=== PATIENT | male | born 1945 | race Caucasian/White ===

== ENCOUNTER 2018-09-30 14:41 | Inpatient (IN) | payer MEDICARE ==
[~2018-09-30] VITALS: Ht 177.8 cm; Wt 60.2 kg
[2018-09-30] MEDS ORDERED: ALBUTEROL/IPRATROPIUM 2.5MG/0.5MG, 3 ML ONE ×2 (14:55→15:26)
[2018-09-30] MEDS ORDERED: PLEASE ENTER ALLERGIES MC SCH (15:00)
[2018-09-30] MEDS ORDERED: PLEASE ENTER HEIGHT AND WEIGHT MC SCH (15:00)
[2018-09-30] MEDS: ALBUTEROL/IPRATROPIUM 2.5MG/0.5MG, 3 ML NPPB SCH ×3 (15:05→21:00)
--- NOTE | 2018-09-30 15:29 | NUR ---
PT PRESENTED TO ED WITH SHORTNESS OF BREATH X 3 DAYS. FRIEND STATED HE HAS HAD DECREASED APPETITE OVER THE PAST FEW DAYS. PT A&OX4 AND DROWSY. PT PLACED IN ROOM AND EKG DONE AND PRESENTED TO MD. PT PLACED ON BP, CARDIAC AND CONT. PULSE OXIMETER. ASSESSMENT COMPLETED. RT AT BEDSIDE VENUS STOCKB TREATMENT. 2 SIDE RAILS UP
[2018-09-30] MEDS ORDERED: methylPREDNISolone SOD SUCC 125 MG/2 ML IVPush ONE (15:30)
[2018-09-30] MEDS ORDERED: methylPREDNISolone SOD SUCC 125 MG/2 ML ONE (15:37)
[2018-09-30 15:43] LABS: BASOPHILS # (AUTO) 0.03 x10^3/uL (0-0.1); BASOPHILS % (AUTO) 0 % (0-1); EOSINOPHILS # (AUTO) 0.01 x10^3/uL (0-0.4); EOSINOPHILS % (AUTO) 0 % (1-7); LYMPHOCYTES # (AUTO) 1.04 x10^3/uL (1-3.4); LYMPHOCYTES % (AUTO) 16 % (22-44); MD NO; MEAN CORPUSCULAR HGB CONC 32.4 g/dL (33.2-36.2); MEAN CORPUSCULAR VOLUME 89.5 fL (81-97); MEAN PLATELET VOLUME 9.7 fL (7.4-10.4); MONOCYTES % (AUTO) 12 % (2-9); NEUTROPHILS # (AUTO) 4.65 x10^3/uL (1.8-6.8); NEUTROPHILS % (AUTO) 71 % (42-75); PLATELET COUNT 204 x10^3/uL (130-400); RED BLOOD COUNT 5.45 x10^6/uL (4.38-5.82); RED CELL DISTRIBUTION WIDTH 15.6 % (9.4-14.8)
[2018-09-30] MEDS ORDERED: UMEC1DIS INH (15:43)
[2018-09-30 15:54] LABS: ALBUMIN 3.5 g/dL (3.4-5.0); ANION GAP 5 mmol/L (5-15); CHLORIDE 105 mmol/L (98-107)
[2018-09-30 15:58] LABS: CREATININE 1.06 mg/dL (0.7-1.3); TROPONIN I 0.135 ng/mL (0.000-0.045)
[2018-09-30] MEDS ORDERED: CEFTRIAXONE PMX 1GM/50ML 50 ML IV ONE (16:00)
[2018-09-30] MEDS ORDERED: DOXYCYCLINE 100 MG in DEXTROSE 5% 250 ML IV ONE (16:00)
--- NOTE | 2018-09-30 16:11 | NUR ---
BLOOD CULTURES DRAWN X 2 AND ANTIBIOTICS HUNG PER MD ORDER
[2018-09-30] MEDS ORDERED: CEFTRIAXONE PMX 1GM/50ML 50 ML ONE (16:26)
[2018-09-30] MEDS ORDERED: ENOXAPARIN 60 MG/0.6 ML SQ ONE (16:30)
[2018-09-30] MEDS ORDERED: ASPIRIN 325 MG TABLET PO ONE (16:30)
[2018-09-30] MEDS ORDERED: morphine SULFATE 10 MG/ML, 1ML IVPush PRN (17:30)
[2018-09-30] MEDS ORDERED: ACETAMINOPHEN 325 MG TABLET PO PRN (17:30)
[2018-09-30] MEDS ORDERED: DOCUSATE 100 MG CAPSULE PO PRN (17:30)
[2018-09-30] MEDS ORDERED: ONDANSETRON 2MG/ML, 2ML IVPush PRN (17:30)
[2018-09-30] MEDS ORDERED: BISACODYL 10 MG SUPP PR PRN (17:30)
[2018-09-30] MEDS ORDERED: ONDANSETRON ODT 4 MG PO PRN (17:30)
[2018-09-30] MEDS ORDERED: hydrALAzine 20 MG/ML, 1ML IVPush PRN (17:30)
[2018-09-30] MEDS ORDERED: PROMETHAZINE 25 MG/ML, 1ML IM PRN (17:30)
[2018-09-30] MEDS ORDERED: POLYETHYLENE GLYCOL 17 GM PACKET PO PRN (17:30)
[2018-09-30] MEDS ORDERED: HYDROcodone/APAP 5/325 TABLET PO PRN (17:30)
[2018-09-30 17:39] LABS: FREE T4 (FREE THYROXINE) 1.61 ng/dL (0.76-1.46)
[2018-09-30 17:45] LABS: HEMOGLOBIN A1C 5.4 % (4.2-6.3)
[2018-09-30] MEDS ORDERED: ASPIRIN 325 MG TABLET ONE (17:53)
--- NOTE | 2018-09-30 18:04 | NUR ---
called report and nurse not available.
--- NOTE | 2018-09-30 18:25 | NUR ---
report given to [facility]. pt will be transferred.
[2018-09-30 19:45] VITALS: BP 113/73
[2018-09-30] MEDS: HEPARIN 5,000 UNITS/ML, 1ML SQ SCH (20:11)
[2018-09-30] MEDS: NICOTINE 14MG/24 HR PATCH.TD24 TD SCH (20:11)
[2018-09-30] MEDS: SODIUM CHLORIDE 0.9% 1,000 ML IV SCH (20:11)
[2018-09-30] MEDS: methylPREDNISolone SOD SUCC 125 MG/2 ML IVPush SCH (20:12)
[2018-09-30] MEDS ORDERED: ALBUTEROL/IPRATROPIUM 2.5MG/0.5MG, 3 ML NPPB PRN (20:30)
[2018-10-01 00:33] LABS: BASOPHILS % (AUTO) 0 % (0-1); EOSINOPHILS % (AUTO) 0 % (1-7); LYMPHOCYTES # (AUTO) 0.37 x10^3/uL (1-3.4); LYMPHOCYTES % (AUTO) 9 % (22-44); MD NO; MEAN CORPUSCULAR HEMOGLOBIN 30.1 pg (27.5-34.5); MEAN CORPUSCULAR HGB CONC 33.5 g/dL (33.2-36.2); MEAN CORPUSCULAR VOLUME 89.6 fL (81-97); MEAN PLATELET VOLUME 9.7 fL (7.4-10.4); MONOCYTES # (AUTO) 0.06 x10^3/uL (0.2-0.8); MONOCYTES % (AUTO) 1 % (2-9); NEUTROPHILS # (AUTO) 3.61 x10^3/uL (1.8-6.8); NEUTROPHILS % (AUTO) 89 % (42-75); PLATELET COUNT 168 x10^3/uL (130-400); RED BLOOD COUNT 4.69 x10^6/uL (4.38-5.82); RED CELL DISTRIBUTION WIDTH 15.6 % (9.4-14.8)
[2018-10-01 00:45] LABS: TROPONIN I 0.105 ng/mL (0.000-0.045)
[2018-10-01 00:51] LABS: ALANINE AMINOTRANSFERASE 15 U/L (12-78); ALBUMIN 2.9 g/dL (3.4-5.0); ANION GAP 7 mmol/L (5-15); CALCIUM 8.5 mg/dL (8.5-10.1); CHLORIDE 108 mmol/L (98-107); CHOLESTEROL, TOTAL 118 mg/dL (140-239); CREATININE 0.94 mg/dL (0.7-1.3)
[2018-10-01 00:54] LABS: ALKALINE PHOSPHATASE 73 U/L (45-117); BILIRUBIN,TOTAL 0.1 mg/dL (0.2-1.0); CHOL/HDL RATIO 2.1; HDL CHOL % 48 % (26-37); HDL CHOLESTEROL (DIRECT) 57 mg/dL (40-60); LDL CHOLESTEROL,CALCULATED 52 mg/dL (54-169); LDL/HDL RATIO 0.9 (0.5-3.0); TOTAL PROTEIN 6.1 g/dL (6.4-8.2); TRIGLYCERIDES 47 mg/dL (50-200); VLDL CHOLESTEROL 9 mg/dL (0-25)
[2018-10-01 02:13] VITALS: BP 116/72
[2018-10-01] MEDS: ALBUTEROL/IPRATROPIUM 2.5MG/0.5MG, 3 ML NPPB SCH ×4 (02:44→20:40)
[2018-10-01] MEDS: methylPREDNISolone SOD SUCC 125 MG/2 ML IVPush SCH ×4 (03:56→19:44)
[2018-10-01] MEDS: CEFTRIAXONE PMX 2GM/50ML 50 ML IV SCH (04:13)
[2018-10-01] MEDS: HEPARIN 5,000 UNITS/ML, 1ML SQ SCH ×3 (04:13→19:44)
[2018-10-01] MEDS: SODIUM CHLORIDE 0.9% 1,000 ML IV SCH ×2 (05:00→05:52)
[2018-10-01] MEDS: DOXYCYCLINE 100 MG in DEXTROSE 5% 250 ML IV SCH ×2 (05:51→17:42)
[2018-10-01 07:00] VITALS: BP 118/68
[2018-10-01 12:40] VITALS: BP 152/80
[2018-10-01 15:25] LABS: MICROSCOPIC NOT IND
[2018-10-01 15:27] LABS: CULTURE INDICATED? NO
[2018-10-01 16:49] LABS: ANION GAP 2 mmol/L (5-15); CALCIUM 8.7 mg/dL (8.5-10.1); CHLORIDE 108 mmol/L (98-107)
[2018-10-01] MEDS ORDERED: OMNIPAQUE 350 MG/ML, 100ML BOTTLE ONE (16:55)
[2018-10-01] MEDS: NICOTINE 14MG/24 HR PATCH.TD24 TD SCH (16:57)
[2018-10-01 20:41] VITALS: BP 154/83
[2018-10-02 00:01] VITALS: BP 166/90
[2018-10-02] MEDS: ALBUTEROL/IPRATROPIUM 2.5MG/0.5MG, 3 ML NPPB SCH ×4 (02:10→19:19)
[2018-10-02] MEDS: methylPREDNISolone SOD SUCC 125 MG/2 ML IVPush SCH ×5 (03:07→23:05)
[2018-10-02] MEDS: HEPARIN 5,000 UNITS/ML, 1ML SQ SCH ×3 (04:08→23:06)
[2018-10-02] MEDS: CEFTRIAXONE PMX 2GM/50ML 50 ML IV SCH (04:08)
[2018-10-02] MEDS: DOXYCYCLINE 100 MG in DEXTROSE 5% 250 ML IV SCH ×2 (06:09→17:56)
[2018-10-02 12:36] VITALS: BP 151/77
[2018-10-02] MEDS ORDERED: DILTIAZEM 5 MG/ML, 5ML IVPush ONE (15:00)
[2018-10-02] MEDS ORDERED: METOPROLOL TARTRATE 25 MG TABLET PO SCH (15:00)
[2018-10-02] MEDS ORDERED: LORazepam 2 MG/ML, 1ML IVPush PRN (15:00)
[2018-10-02] MEDS: DILTIAZEM 30 MG TABLET PO SCH ×2 (15:56→23:06)
[2018-10-02 16:06] LABS: BASOPHILS % (AUTO) 0 % (0-1); EOSINOPHILS % (AUTO) 0 % (1-7); LYMPHOCYTES # (AUTO) 0.59 x10^3/uL (1-3.4); LYMPHOCYTES % (AUTO) 4 % (22-44); MD NO; MEAN CORPUSCULAR HGB CONC 33.2 g/dL (33.2-36.2); MEAN CORPUSCULAR VOLUME 90.2 fL (81-97); MEAN PLATELET VOLUME 9.9 fL (7.4-10.4); MONOCYTES # (AUTO) 0.43 x10^3/uL (0.2-0.8); MONOCYTES % (AUTO) 3 % (2-9); NEUTROPHILS # (AUTO) 12.38 x10^3/uL (1.8-6.8); NEUTROPHILS % (AUTO) 92 % (42-75); PLATELET COUNT 237 x10^3/uL (130-400); RED BLOOD COUNT 5.44 x10^6/uL (4.38-5.82); RED CELL DISTRIBUTION WIDTH 15.5 % (9.4-14.8)
[2018-10-02 16:11] LABS: ANION GAP 6 mmol/L (5-15); CALCIUM 9.1 mg/dL (8.5-10.1); CHLORIDE 110 mmol/L (98-107); CREATININE 0.95 mg/dL (0.7-1.3)
[2018-10-02 16:15] LABS: TROPONIN I 0.095 ng/mL (0.000-0.045)
[2018-10-02] MEDS ORDERED: DILTIAZEM 125 MG in SODIUM CHLORIDE 0.9% 100 ML IV PRN (17:00)
[2018-10-02] MEDS: NICOTINE 14MG/24 HR PATCH.TD24 TD SCH (17:59)
[2018-10-02 20:00] VITALS: BP 136/95
[2018-10-02 23:57] VITALS: BP 136/90
[2018-10-03 01:07] VITALS: BP 127/77
[2018-10-03] MEDS ORDERED: DILTIAZEM 125 MG in SODIUM CHLORIDE 0.9% 100 ML IV SCH (01:30)
[2018-10-03] MEDS ORDERED: NITROGLYCERIN OINT 2%, 1GM TP ONE ×3 (02:00→02:30)
[2018-10-03] MEDS: LORazepam 2 MG/ML, 1ML IVPush PRN ×2 (02:21→09:36)
[2018-10-03] MEDS: ALBUTEROL/IPRATROPIUM 2.5MG/0.5MG, 3 ML NPPB SCH ×4 (03:00→21:59)
[2018-10-03 03:02] LABS: ANION GAP 6 mmol/L (5-15); CALCIUM 8.8 mg/dL (8.5-10.1); CHLORIDE 112 mmol/L (98-107); CREATININE 1.15 mg/dL (0.7-1.3)
[2018-10-03 03:05] LABS: TROPONIN I 0.134 ng/mL (0.000-0.045)
[2018-10-03] MEDS ORDERED: SODIUM CHLORIDE 0.9% 1,000ML IVBOLUS ONE (03:30)
[2018-10-03] MEDS: CEFTRIAXONE PMX 2GM/50ML 50 ML IV SCH (04:46)
[2018-10-03] MEDS: DILTIAZEM 30 MG TABLET PO SCH ×2 (05:00→09:00)
[2018-10-03 05:07] VITALS: BP 148/77
[2018-10-03] MEDS: methylPREDNISolone SOD SUCC 125 MG/2 ML IVPush SCH ×2 (05:54→09:00)
[2018-10-03] MEDS: DOXYCYCLINE 100 MG in DEXTROSE 5% 250 ML IV SCH ×2 (06:11→17:23)
[2018-10-03 07:40] VITALS: BP 133/84
[2018-10-03] MEDS: HEPARIN 5,000 UNITS/ML, 1ML SQ SCH ×3 (09:01→23:12)
[2018-10-03 14:00] VITALS: BP 154/84
[2018-10-03] MEDS ORDERED: NITROGLYCERIN 0.4 MG BOTTLE (25 TABS) SL ONE (14:49)
[2018-10-03] MEDS ORDERED: FUROSEMIDE 40 MG/4 ML ONE (14:52)
[2018-10-03] MEDS ORDERED: FUROSEMIDE 40 MG/4 ML IV ONE (15:00)
[2018-10-03] MEDS ORDERED: NITROGLYCERIN 0.4 MG BOTTLE (25 TABS) SL PRN (15:00)
[2018-10-03] MEDS ORDERED: LORazepam 2 MG/ML, 1ML IVPush PRN (15:30)
[2018-10-03] MEDS ORDERED: OLANZAPINE 5 MG TABLET PO PRN (16:00)
[2018-10-03] MEDS ORDERED: OLANZAPINE 10 MG INJ IM PRN (16:00)
[2018-10-03] MEDS ORDERED: OLANZAPINE 10 MG INJ IM ONE (16:00)
[2018-10-03] MEDS: ZIPRASIDONE 20 MG INJ IM PRN ×2 (17:10→20:56)
[2018-10-03] MEDS: NICOTINE 14MG/24 HR PATCH.TD24 TD SCH (17:10)
[2018-10-03 17:36] LABS: ANION GAP 12 mmol/L (5-15); CALCIUM 8.4 mg/dL (8.5-10.1); CHLORIDE 111 mmol/L (98-107)
[2018-10-03 17:37] LABS: CREATININE 1.21 mg/dL (0.7-1.3)
[2018-10-03] MEDS ORDERED: DILTIAZEM 125 MG in SODIUM CHLORIDE 0.9% 100 ML IV PRN (18:30)
[2018-10-04] MEDS ORDERED: DILTIAZEM 125 MG in SODIUM CHLORIDE 0.9% 100 ML IV SCH (01:30)
[2018-10-04] MEDS: ALBUTEROL/IPRATROPIUM 2.5MG/0.5MG, 3 ML NPPB SCH ×4 (03:00→20:38)
[2018-10-04] MEDS: CEFTRIAXONE PMX 2GM/50ML 50 ML IV SCH (03:22)
[2018-10-04 04:25] LABS: ANION GAP 7 mmol/L (5-15); CALCIUM 8.3 mg/dL (8.5-10.1); CHLORIDE 111 mmol/L (98-107); CREATININE 1.06 mg/dL (0.7-1.3)
[2018-10-04 04:30] VITALS: BP 110/50
[2018-10-04 04:53] LABS: BASOPHILS # (AUTO) 0.01 x10^3/uL (0-0.1); BASOPHILS % (AUTO) 0 % (0-1); EOSINOPHILS % (AUTO) 0 % (1-7); LYMPHOCYTES % (AUTO) 10 % (22-44); MD NO; MEAN CORPUSCULAR HEMOGLOBIN 29.2 pg (27.5-34.5); MEAN CORPUSCULAR HGB CONC 32.4 g/dL (33.2-36.2); MEAN CORPUSCULAR VOLUME 90.3 fL (81-97); MEAN PLATELET VOLUME 9.9 fL (7.4-10.4); MONOCYTES # (AUTO) 0.36 x10^3/uL (0.2-0.8); MONOCYTES % (AUTO) 6 % (2-9); NEUTROPHILS # (AUTO) 4.96 x10^3/uL (1.8-6.8); NEUTROPHILS % (AUTO) 84 % (42-75); PLATELET COUNT 173 x10^3/uL (130-400); RED BLOOD COUNT 4.68 x10^6/uL (4.38-5.82); RED CELL DISTRIBUTION WIDTH 15.6 % (9.4-14.8)
[2018-10-04] MEDS: DOXYCYCLINE 100 MG in DEXTROSE 5% 250 ML IV SCH ×2 (05:09→17:58)
[2018-10-04] MEDS: HEPARIN 5,000 UNITS/ML, 1ML SQ SCH ×3 (05:39→23:52)
[2018-10-04] MEDS ORDERED: FUROSEMIDE 20 MG/2 ML IV ONE (08:00)
[2018-10-04] MEDS: QUETIAPINE 25MG TABLET PO SCH ×2 (08:43→20:22)
[2018-10-04] MEDS ORDERED: FUROSEMIDE 20 MG/2 ML IV SCH (09:00)
[2018-10-04] MEDS ORDERED: FUROSEMIDE 40 MG/4 ML IV SCH (09:00)
[2018-10-04] MEDS ORDERED: POTASSIUM CHLORIDE 20 MEQ TAB.ER.PRT PO ONE (09:30)
[2018-10-04] MEDS ORDERED: OMNIPAQUE 350 MG/ML, 100ML BOTTLE ONE (11:28)
[2018-10-04] MEDS ORDERED: DILTIAZEM 30 MG TABLET PO SCH (12:00)
[2018-10-04 15:14] VITALS: BP 131/77
[2018-10-04] MEDS: NICOTINE 14MG/24 HR PATCH.TD24 TD SCH (17:58)
[2018-10-04] MEDS: DILTIAZEM 30 MG TABLET PO SCH ×2 (17:59→23:52)
[2018-10-04 20:28] VITALS: BP 135/75
[2018-10-05 00:42] VITALS: BP 143/75
[2018-10-05] MEDS: ALBUTEROL/IPRATROPIUM 2.5MG/0.5MG, 3 ML NPPB SCH ×4 (02:42→19:18)
[2018-10-05] MEDS: DOXYCYCLINE 100 MG in DEXTROSE 5% 250 ML IV SCH ×2 (06:04→17:54)
[2018-10-05] MEDS: DILTIAZEM 30 MG TABLET PO SCH ×3 (06:04→20:18)
[2018-10-05 08:05] VITALS: BP 144/80
[2018-10-05] MEDS: QUETIAPINE 25MG TABLET PO SCH ×2 (08:20→20:18)
[2018-10-05] MEDS: HEPARIN 5,000 UNITS/ML, 1ML SQ SCH ×2 (08:20→17:54)
[2018-10-05] MEDS: METOPROLOL TARTRATE 25 MG TABLET PO SCH ×2 (11:18→17:54)
[2018-10-05 12:25] VITALS: BP 116/75
[2018-10-05] MEDS: NICOTINE 14MG/24 HR PATCH.TD24 TD SCH (17:54)
[2018-10-05 19:41] VITALS: BP 138/88
[2018-10-06 00:45] VITALS: BP 149/46
[2018-10-06] MEDS: HEPARIN 5,000 UNITS/ML, 1ML SQ SCH ×3 (02:32→17:24)
[2018-10-06] MEDS: DILTIAZEM 30 MG TABLET PO SCH (02:32)
[2018-10-06] MEDS: ALBUTEROL/IPRATROPIUM 2.5MG/0.5MG, 3 ML NPPB SCH ×4 (02:33→19:56)
[2018-10-06 05:33] LABS: CHLORIDE 110 mmol/L (98-107)
[2018-10-06 05:42] LABS: ALANINE AMINOTRANSFERASE 70 U/L (12-78); ALBUMIN 2.6 g/dL (3.4-5.0); ALKALINE PHOSPHATASE 61 U/L (45-117); ANION GAP 5 mmol/L (5-15); BASOPHILS # (AUTO) 0.04 x10^3/uL (0-0.1); BASOPHILS % (AUTO) 0 % (0-1); BILIRUBIN,TOTAL 0.5 mg/dL (0.2-1.0); EOSINOPHILS # (AUTO) 0.14 x10^3/uL (0-0.4); EOSINOPHILS % (AUTO) 1 % (1-7); LYMPHOCYTES # (AUTO) 1.48 x10^3/uL (1-3.4); LYMPHOCYTES % (AUTO) 13 % (22-44); MD NO; MEAN CORPUSCULAR HEMOGLOBIN 29.9 pg (27.5-34.5); MEAN CORPUSCULAR HGB CONC 33.2 g/dL (33.2-36.2); MEAN CORPUSCULAR VOLUME 89.8 fL (81-97); MEAN PLATELET VOLUME 9.9 fL (7.4-10.4); MONOCYTES % (AUTO) 9 % (2-9); NEUTROPHILS # (AUTO) 8.95 x10^3/uL (1.8-6.8); NEUTROPHILS % (AUTO) 77 % (42-75); PLATELET COUNT 192 x10^3/uL (130-400); RED BLOOD COUNT 5.05 x10^6/uL (4.38-5.82); RED CELL DISTRIBUTION WIDTH 15.6 % (9.4-14.8); TOTAL PROTEIN 5.4 g/dL (6.4-8.2)
[2018-10-06] MEDS: DOXYCYCLINE 100 MG in DEXTROSE 5% 250 ML IV SCH (06:25)
[2018-10-06] MEDS: METOPROLOL TARTRATE 25 MG TABLET PO SCH (06:25)
[2018-10-06 07:50] VITALS: BP 142/86
[2018-10-06] MEDS ORDERED: DILTIAZEM 30 MG TABLET PO SCH (09:00)
[2018-10-06] MEDS: QUETIAPINE 25MG TABLET PO SCH ×2 (09:41→20:25)
[2018-10-06] MEDS: METOPROLOL SUCCINATE 25 MG TAB.ER.24H PO SCH (10:00)
[2018-10-06] MEDS ORDERED: DOXYCYCLINE 100 MG in DEXTROSE 5% 250 ML IV SCH (17:00)
[2018-10-06] MEDS: DILTIAZEM 120 MG CAP.ER.24H PO SCH (17:24)
[2018-10-06] MEDS: NICOTINE 14MG/24 HR PATCH.TD24 TD SCH (17:25)
[2018-10-06] MEDS: DOXYCYCLINE 100MG TABLET PO SCH (20:25)
[2018-10-07 01:06] VITALS: BP 137/78
[2018-10-07] MEDS: HEPARIN 5,000 UNITS/ML, 1ML SQ SCH ×2 (01:47→10:02)
[2018-10-07] MEDS: ALBUTEROL/IPRATROPIUM 2.5MG/0.5MG, 3 ML NPPB SCH ×2 (02:52→08:00)
[2018-10-07 04:54] LABS: BASOPHILS # (AUTO) 0.03 x10^3/uL (0-0.1); BASOPHILS % (AUTO) 0 % (0-1); EOSINOPHILS # (AUTO) 0.18 x10^3/uL (0-0.4); EOSINOPHILS % (AUTO) 2 % (1-7); LYMPHOCYTES # (AUTO) 1.21 x10^3/uL (1-3.4); LYMPHOCYTES % (AUTO) 10 % (22-44); MD NO; MEAN CORPUSCULAR HEMOGLOBIN 29.8 pg (27.5-34.5); MEAN CORPUSCULAR HGB CONC 33.1 g/dL (33.2-36.2); MEAN CORPUSCULAR VOLUME 90.3 fL (81-97); MEAN PLATELET VOLUME 10.1 fL (7.4-10.4); MONOCYTES # (AUTO) 0.67 x10^3/uL (0.2-0.8); MONOCYTES % (AUTO) 6 % (2-9); NEUTROPHILS # (AUTO) 9.86 x10^3/uL (1.8-6.8); NEUTROPHILS % (AUTO) 83 % (42-75); PLATELET COUNT 168 x10^3/uL (130-400); RED BLOOD COUNT 4.96 x10^6/uL (4.38-5.82); RED CELL DISTRIBUTION WIDTH 15.6 % (9.4-14.8)
[2018-10-07 04:58] LABS: CHLORIDE 113 mmol/L (98-107)
[2018-10-07 05:02] LABS: ANION GAP 6 mmol/L (5-15); CALCIUM 8.2 mg/dL (8.5-10.1); CREATININE 1.04 mg/dL (0.7-1.3)
[2018-10-07] MEDS: METOPROLOL SUCCINATE 25 MG TAB.ER.24H PO SCH (05:50)
[2018-10-07 07:04] VITALS: BP 128/79
[2018-10-07] MEDS: DOXYCYCLINE 100MG TABLET PO SCH (10:01)
[2018-10-07] MEDS: DILTIAZEM 120 MG CAP.ER.24H PO SCH (10:01)
[2018-10-07] MEDS: QUETIAPINE 25MG TABLET PO SCH (10:05)
[2018-10-07] MEDS ORDERED: IPRA3AMP30 NPPB (11:22)
[2018-10-07] MEDS ORDERED: DOCU-131 PO (11:22)
[2018-10-07] MEDS ORDERED: DILT120C9 PO (11:22)
[2018-10-07] MEDS ORDERED: METO25TA91 PO (11:22)
[2018-10-07] MEDS ORDERED: PRED5TAB PO (11:22)
[2018-10-07] MEDS ORDERED: QUET25TA7 PO (11:22)
[2018-10-07] MEDS ORDERED: DOXY100T PO (11:22)
[2018-10-07 12:57] VITALS: BP 94/67
== END 2018-10-07 14:00 | disposition home or self-care (01) | DRG 280 ==
LOC: ED 15:54 → EDIP 16:03 → 4WST 19:13 → 5SO 10-03 01:05 → CCU 10-03 16:09 → 5SO 10-04 14:57
PROVIDERS: ADMIT Internal Medicine; ATTEND Internal Medicine
DX: I21.A1 Myocardial infarction type 2 (principal); J15.9 Unspecified bacterial pneumonia; J96.01 Acute respiratory failure with hypoxia; I50.33 Acute on chronic diastolic (congestive) heart failure; F23 Brief psychotic disorder; I47.1 Supraventricular tachycardia; I47.2 Ventricular tachycardia; I48.4 Atypical atrial flutter; I51.3 Intracardiac thrombosis, not elsewhere classified; J43.9 Emphysema, unspecified; I71.4 Abdominal aortic aneurysm, without rupture; F03.90 Unspecified dementia, unspecified severity, without behavioral disturbance, psychotic disturbance, mood disturbance, and anxiety; F17.210 Nicotine dependence, cigarettes, uncomplicated; F31.9 Bipolar disorder, unspecified; F41.9 Anxiety disorder, unspecified; I25.10 Atherosclerotic heart disease of native coronary artery without angina pectoris; I35.8 Other nonrheumatic aortic valve disorders; K86.89 Other specified diseases of pancreas; R32 Unspecified urinary incontinence; N28.1 Cyst of kidney, acquired; Z79.899 Other long term (current) drug therapy; Z82.0 Family history of epilepsy and other diseases of the nervous system; Z99.81 Dependence on supplemental oxygen
CPT/HCPCS: 36415; 71045; 71275; 74174; 80048; 80053; 80061; 81003; 82040; 82378; 82803; 83036; 83605; 83690; 83735; 83880; 84145; 84439; 84443; 84484; 85025; 86301; 87040; 87081; 93005; 93306; 94640; 96365; 96367; G0378; J0696; J1644; J1940; J3486; J7060; J7620; Q9967; J2060; J2930; J7030; J7512

== ENCOUNTER → 2018-11-06 | Outpatient (CLI) | payer MEDICARE ==
[~2018-11-06] MED LIST: DILT120C9 PO; DOCU-131 PO; DOXY100T PO; IPRA3AMP30 NPPB; METO25TA91 PO; PRED5TAB PO; QUET25TA7 PO; UMEC1DIS INH
== END | disposition home or self-care (01) ==
LOC: PETCFH 09:44
PROVIDERS: ATTEND Family Medicine
DX: C25.0 Malignant neoplasm of head of pancreas (principal); J43.9 Emphysema, unspecified; I71.4 Abdominal aortic aneurysm, without rupture; R91.8 Other nonspecific abnormal finding of lung field; R59.0 Localized enlarged lymph nodes
CPT/HCPCS: 78815; A9552

== ENCOUNTER 2018-12-03 08:06 | Day surgery (SDC) | payer MEDICARE ==
[~2018-12-03] VITALS: Ht 177.8 cm; Wt 60.3 kg
[2018-12-03] MEDS ORDERED: LACTATED RINGERS 1,000 ML IV SCH (08:49)
[2018-12-03] MEDS ORDERED: VENL37.52 PO (09:08)
[2018-12-03] MEDS ORDERED: ALBUTEROL INH (09:08)
[2018-12-03] MEDS ORDERED: ASPI-496 PO (09:08)
[2018-12-03] MEDS ORDERED: MULT-658 PO (09:08)
[2018-12-03 09:13] VITALS: BP 155/97
[2018-12-03] MEDS ORDERED: CEFAZOLIN 1,000 MG ONE ×2 (09:53)
[2018-12-03] MEDS ORDERED: PROPOFOL 10 MG/ML, 20ML ONE ×3 (09:53→10:32)
[2018-12-03] MEDS ORDERED: ALBUTEROL SULFATE 2.5 MG/3 ML NPPB PRN (10:00)
[2018-12-03] MEDS ORDERED: HALOPERIDOL 5 MG/ML IV PRN (10:00)
[2018-12-03] MEDS ORDERED: PROMETHAZINE 12.5 MG SUPP PR PRN (10:00)
[2018-12-03] MEDS ORDERED: ACETAMINOPHEN 325 MG TABLET PO PRN (10:00)
[2018-12-03] MEDS ORDERED: ONDANSETRON ODT 8 MG PO PRN (10:00)
[2018-12-03] MEDS ORDERED: EPHEDRINE 50 MG/ML, 1ML IVPush PRN (10:00)
[2018-12-03] MEDS ORDERED: HYDROmorphone 2 MG/ML, 1ML IVPush PRN (10:00)
[2018-12-03] MEDS ORDERED: FENTANYL PF 100 MCG/2ML IV PRN (10:00)
[2018-12-03] MEDS ORDERED: MEPERIDINE/PF 25MG/0.5ML IVPush PRN (10:00)
[2018-12-03] MEDS ORDERED: OXYcodone 5 MG/5 ML ORAL.SOL UDC PO PRN (10:00)
[2018-12-03] MEDS ORDERED: MIDAZOLAM 1 MG/ML, 2ML IV PRN (10:00)
[2018-12-03] MEDS ORDERED: hydrALAzine 20 MG/ML, 1ML IV PRN (10:00)
[2018-12-03] MEDS ORDERED: DIAZEPAM 5 MG/ML, 2ML IVPush PRN (10:00)
[2018-12-03] MEDS ORDERED: MORPHINE SULFATE 4 MG/ML, 1ML IVPush PRN (10:00)
[2018-12-03] MEDS ORDERED: PROMETHAZINE 25 MG/ML, 1ML IV PRN (10:00)
[2018-12-03] MEDS ORDERED: LABETALOL 5MG/ML, 20ML IV PRN (10:00)
[2018-12-03] MEDS ORDERED: ONDANSETRON 2MG/ML, 2ML IV PRN (10:00)
[2018-12-03] MEDS ORDERED: PROPOFOL 50 ML ONE (10:04)
[2018-12-03] MEDS ORDERED: LIDOCAINE-MPF 2% ,5ML ONE (10:05)
== END 2018-12-03 12:20 | disposition home or self-care (01) ==
LOC: OR 08:06
PROVIDERS: ATTEND Internal Medicine
DX: K21.0 Gastro-esophageal reflux disease with esophagitis (principal); K22.10 Ulcer of esophagus without bleeding; K85.90 Acute pancreatitis without necrosis or infection, unspecified; J98.4 Other disorders of lung; F19.90 Other psychoactive substance use, unspecified, uncomplicated; I10 Essential (primary) hypertension; F17.210 Nicotine dependence, cigarettes, uncomplicated; F03.90 Unspecified dementia, unspecified severity, without behavioral disturbance, psychotic disturbance, mood disturbance, and anxiety; J44.9 Chronic obstructive pulmonary disease, unspecified; Z79.82 Long term (current) use of aspirin; Z79.899 Other long term (current) drug therapy
CPT/HCPCS: 43242; 82150; 82378; 88305; J0690; J2704; J7120

== ENCOUNTER 2018-12-17 09:41 | Day surgery (SDC) | payer MEDICARE ==
[~2018-12-17] VITALS: Ht 177.8 cm; Wt 59.6 kg
[~2018-12-17 09:41] MED LIST changes: +ALBUTEROL INH; +ASPI-496 PO; +MULT-658 PO; +VENL37.52 PO
[2018-12-17] MEDS ORDERED: LACTATED RINGERS 1,000 ML IV SCH (10:14)
[2018-12-17] MEDS ORDERED: ESCI20TA PO (10:17)
[2018-12-17] MEDS ORDERED: OMEP40CA6 PO (10:17)
[2018-12-17 10:21] VITALS: BP 159/73
[2018-12-17] MEDS ORDERED: PROPOFOL 10 MG/ML, 20ML ONE (12:20)
[2018-12-17] MEDS ORDERED: PROMETHAZINE 25 MG/ML, 1ML IV PRN (12:30)
[2018-12-17] MEDS ORDERED: ONDANSETRON ODT 8 MG PO PRN (12:30)
[2018-12-17] MEDS ORDERED: PROMETHAZINE 25 MG SUPP PR PRN (12:30)
[2018-12-17] MEDS ORDERED: ONDANSETRON 2MG/ML, 2ML IV PRN (12:30)
[2018-12-17] MEDS ORDERED: FENTANYL PF 100 MCG/2ML IV PRN (12:30)
[2018-12-17] MEDS ORDERED: HYDROmorphone 2 MG/ML, 1ML IVPush PRN (12:30)
[2018-12-17] MEDS ORDERED: ACETAMINOPHEN 325 MG TABLET PO PRN (12:30)
== END 2018-12-17 14:30 | disposition home or self-care (01) ==
LOC: OUT 09:41
PROVIDERS: ATTEND Internal Medicine Geriatric Medicine
DX: C15.9 Malignant neoplasm of esophagus, unspecified (principal); K85.90 Acute pancreatitis without necrosis or infection, unspecified; J98.4 Other disorders of lung; G30.9 Alzheimer's disease, unspecified; F17.210 Nicotine dependence, cigarettes, uncomplicated; I10 Essential (primary) hypertension; Z79.82 Long term (current) use of aspirin
CPT/HCPCS: 43237; J2704; J7120